=== PATIENT | male | born 1955 | race Caucasian/White ===

== ENCOUNTER 2017-05-30 16:23 | Emergency (ER) | payer BC, OTHER ==
[~2017-05-30] VITALS: Ht 188 cm; Wt 86.8 kg
[~2017-05-30 16:23] MED LIST: PHEN0.4T PO; TAMS5CAP PO
[2017-05-30 16:29] VITALS: BP 153/96; PULSE 109; RESP 16; TEMP 99; O2SAT 97
--- NOTE | 2017-05-30 16:54 | PD ---
HPI Chief Complaint: Musculoskeletal Complaint Time Seen by Provider: 16:41 Travel History International Travel<30 days: No Contact w/Intl Traveler<30days: No Traveled to known affect area: No History of Present Illness HPI 61yo M with PMH of prostate CA s/p radiation here with c/o left ankle and calf pain. Pt said he has been having pain for about 3 weeks. Does not remember twisting the ankle or any trauma. Had US left leg last year and said he had small blood clot and they were monitoring it. Denies any fever, chest pain, sob , n/v, abdominal pain, focal weakness or numbness. PFSH Past Medical History Cancer: Yes (PROSTATE) Neurologic: Yes (BRAIN TUMOR - DX 8 YEARS AGO) Influenza Vaccination: No Past Surgical History Abdominal Surgery: Yes (HERNIA INGINAL BILATERAL) Other Surgery: Yes (RIGHT KNEE, RIGHT LEG "26 VEINS REMOVED", LEFT INGUINAL HERNIA REPAIR) Social History Alcohol Use: Yes (2 TIMES WEEKLY) Tobacco Use: Yes (1 PPD) Substance Use: No Allergies-Medications (Allergen,Severity, Reaction): Coded Allergies: acetaminophen (Unverified Allergy, Severe, Itching, 05/30/17) naproxen (Unverified Allergy, Severe, BLISTERING, 05/30/17) oxycodone (Unverified Allergy, Severe, Itching, 05/30/17) Reported Meds & Prescriptions Reported Meds & Active Scripts Active No Active Prescriptions or Reported Medications Review of Systems Except as stated in HPI: all other systems reviewed are Neg Physical Exam Narrative GENERAL: 61yo M not in distress. SKIN: Focused skin assessment warm/dry. HEAD: Atraumatic. Normocephalic. CARDIOVASCULAR: Regular rate and rhythm. No murmur appreciated. RESPIRATORY: No accessory muscle use. Clear to auscultation. Breath sounds equal bilaterally. GASTROINTESTINAL: Abdomen soft, non-tender, nondistended. MUSCULOSKELETAL: LLE: Mild ttp left calf. +Edema in left ankle. +TTP lateral malleolus. DP 2+. Sensation intact. NEUROLOGICAL: Awake and alert. No obvious cranial nerve deficits. Motor grossly within normal limits. Normal speech. PSYCHIATRIC: Appropriate mood and affect; insight and judgment normal. Data Data Last Documented VS Vital Signs Date Time Temp Pulse Resp B/P (MAP) Pulse Ox O2 Delivery O2 Flow Rate FiO2 05/30/17 17:01 96 16 143/83 (103) 95 Room Air 05/30/17 16:29 99.0 Orders Orders Acetamin-Hydrocod 325-5 Mg ([place] 5-325 (05/30/17 17:00) Ankle, Limited (Ap&Lat) (05/30/17 ) Us Leg Venous Doppler (05/30/17 ) MDM Medical Decision Making Medical Screen Exam Complete: Yes Emergency Medical Condition: Yes Differential Diagnosis Ankle sprain vs. fracture vs. DVT Narrative Course 61yo M with left calf and ankle pain for 3 weeks. No signs of infection and denies any fever or trauma. Pt said he can only take norco so given that for pain. Xray left ankle showed no acute bony abnormality. Mild soft tissue swelling. US left leg showed no DVT. Pt ambulating in the ED and wants to go home. Return precautions given. Diagnosis Primary Impression: Left leg pain Patient Instructions: General Instructions Departure Forms: Tests/Procedures Additional Instructions: Please follow up with your primary care physician in 2-3 days. Return to the ED if symptoms worsen. Med/Other Pt SpecificInfo: No Change to Meds Scripts No Active Prescriptions or Reported Meds Disposition: 01 DISCHARGE HOME Condition: Stable Isabela Watson DO May 30, 2017 16:54
[2017-05-30] MEDS ORDERED: ACETAMINOPHEN/HYDROcodone 325 MG/5 MG TAB PO ONE (17:00)
[2017-05-30 17:01] VITALS: BP 143/83; PULSE 96; RESP 16; O2SAT 95
--- NOTE | 2017-05-30 18:18 | RADRPT ---
EXAM DATE/TIME: 05/30/2017 17:49 [facility] COMPARISON: No previous studies available for comparison. INDICATIONS : Left leg pain. MEDICAL HISTORY : Carcinoma, prostate. Brain tumor. Radiation therapy. SURGICAL HISTORY : Inguinal hernia repair. Right knee surgery. Right leg vein surgery. ENCOUNTER: Initial ACUITY: 3 weeks PAIN SCORE: 1/10 LOCATION: Left leg. TECHNIQUE: Venous ultrasound of the leg was performed from the inguinal ligament to the proximal calf. Real-rich e, color Doppler and spectral tracing, compression and augmentation techniques were used. FINDINGS: There is normal compressibility of the deep venous system from the inguinal region to the proximal ca lf. No echogenic clot is seen in the lumen of the common femoral, femoral, popliteal, and posterior tibial veins. There is a normal response of the venous system to proximal and distal augmentation an d respiration. CONCLUSION: Normal examination. Kishore Adkins MD on May 30, 2017 at 18:16 Board Certified Radiologist. This report was verified electronically.
--- NOTE | 2017-05-30 18:33 | RADRPT ---
EXAM DATE/TIME: 05/30/2017 18:16 [facility] COMPARISON: No previous studies available for comparison. INDICATIONS : Left ankle swelling for 3 weeks. MEDICAL HISTORY : Carcinoma, prostate. Brain tumor. Radiation therapy. SURGICAL HISTORY : Inguinal hernia repair. Right knee surgery. Right leg vein surgery. ENCOUNTER: Initial ACUITY: 3 weeks PAIN SCORE: 1/10 LOCATION: Left ankle. FINDINGS: Two view exam was performed of the left ankle. The bony structures are in normal alignment. No evid ence of fracture, dislocation. No radiopaque foreign bodies are seen. Bony mineralization is normal. CONCLUSION: 1. No acute bony abnormality. mild soft tissue swelling. Kishore Adkins MD on May 30, 2017 at 18:30 Board Certified Radiologist. This report was verified electronically.
== END 2017-05-30 19:18 | disposition home or self-care (01) ==
LOC: PHED 16:23
DX: M79.605 Pain in left leg (principal); F17.200 Nicotine dependence, unspecified, uncomplicated
CPT/HCPCS: 73600; 93971; 99284